=== PATIENT | male | born 1980 | race Two or more races ===

== ENCOUNTER 2020-01-17 14:09 | Emergency (ER) | payer SELFPAY ==
[~2020-01-17] VITALS: Ht 177.8 cm; Wt 90.7 kg
--- NOTE | 2020-01-17 14:17 | NUR ---
PT IS IN ROOM #2A. DR WOODRUFF EVALUATED THE PT.
--- NOTE | 2020-01-17 15:43 | NUR ---
PT WAS D/C'd TO HOME. D/C INSTRUCTIONS GIVEN TO THE PT BY DR WOODRUFF.
[2020-01-17 15:45] VITALS: BP 136/77
== END 2020-01-17 15:46 | disposition home or self-care (01) ==
LOC: ER 14:09
DX: S06.0X1A Concussion with loss of consciousness of 30 minutes or less, initial encounter (principal); S00.01XA Abrasion of scalp, initial encounter; R40.2412 Glasgow coma scale score 13-15, at arrival to emergency department; W22.8XXA Striking against or struck by other objects, initial encounter; Y92.89 Other specified places as the place of occurrence of the external cause; R03.0 Elevated blood-pressure reading, without diagnosis of hypertension
CPT/HCPCS: 70450; A4663